=== PATIENT | female | born 1995 | race Caucasian/White ===

== ENCOUNTER 2017-10-24 23:46 | Emergency (ER) | payer MEDICAID, OTHER ==
[2017-10-25 00:41] VITALS: BMI 23.5
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
--- NOTE | 2017-10-27 10:16 | OBDCSUM ---
Datetime: 10/25/2017 01:06 Follow up in weeks, Provider: 1-2w
== END 2017-10-25 01:15 | disposition home or self-care (01) ==
LOC: H.EROB2 23:46 → H.ER 23:46
DX: O26.92 Pregnancy related conditions, unspecified, second trimester (principal); R06.02 Shortness of breath; R10.2 Pelvic and perineal pain; Z3A.20 20 weeks gestation of pregnancy